=== PATIENT | female | born 1945 | race Caucasian/White ===

== ENCOUNTER 2017-06-27 17:54 | Emergency (ER) | payer MEDICARE, OTHER ==
[~2017-06-27] VITALS: Ht 160 cm; Wt 63.0 kg
[~2017-06-27 17:54] MED LIST: ALBU8.5H5 INH; AMLO5TAB2 PO; ASPI81TA50 PO; BUSP15TA PO; CLOP75TA52 PO; CYCL-259 PO; DIAZ5TAB4 PO; HYDR-3237 PO; METF500T4 PO; METH4TAB2 PO; RANO500T2 PO; ROSU10TA PO
[2017-06-27] MEDS ORDERED: ONDANSETRON ODT 4 MG ONE (19:34)
[2017-06-27] MEDS ORDERED: HYDROmorphone 1 MG/ML, 1ML ONE ×2 (19:34→20:37)
[2017-06-27] MEDS: HYDROmorphone 1 MG/ML, 1ML IM PRN ×2 (19:38→20:48)
[2017-06-27] MEDS ORDERED: ONDANSETRON ODT 4 MG PO ONE (20:00)
[2017-06-27 21:00] VITALS: BP 134/78
== END 2017-06-27 21:16 | disposition home or self-care (01) ==
LOC: ED 18:44
DX: S42.222A 2-part displaced fracture of surgical neck of left humerus, initial encounter for closed fracture (principal); E11.9 Type 2 diabetes mellitus without complications; F17.200 Nicotine dependence, unspecified, uncomplicated; I10 Essential (primary) hypertension; J44.9 Chronic obstructive pulmonary disease, unspecified; Z95.5 Presence of coronary angioplasty implant and graft; W18.39XA Other fall on same level, initial encounter; Y93.89 Activity, other specified; Y92.89 Other specified places as the place of occurrence of the external cause; Y99.8 Other external cause status
CPT/HCPCS: 73030; 73060; 73080; 73090; 96372; 99284; J1170; Q0162